=== PATIENT | female | born 1955 | race Caucasian/White ===

== ENCOUNTER 2017-09-26 10:00 | Outpatient (CLI) | payer OTHER ==
--- NOTE | 2017-09-26 10:26 | RAD ---
FIVE VIEWS OF THE LUMBAR SPINE: INDICATIONS: Back pain with referral to the right hip and right buttock region. FINDINGS: There is 24 degrees of dextroscoliosis centered at L2-L3. there is mild multilevel disk degenerative disease. There is mild multilevel facet osteoarthritic change, most pronounced at L3-L4 through L5- S1. Mild SI joint degenerative change is present. No acute fracture or subluxation is evident. No abnormal translational motion is demonstrated. IMPRESSION: 1. Mild multilevel spondylosis of the lumbar spine. 2. Mild dextroscoliosis. 3. No abnormal translational motion seen on the dynamic lateral projections of the lumbar spine. POS: KARYN
== END 2017-09-26 10:01 | disposition home or self-care (01) ==
LOC: SCSRAD 10:00
PROVIDERS: ATTEND Family Medicine
DX: M54.5 Low back pain (principal); M47.896 Other spondylosis, lumbar region; M41.86 Other forms of scoliosis, lumbar region
CPT/HCPCS: 72120

== ENCOUNTER 2018-04-24 09:01 | Outpatient (CLI) | payer OTHER | END 2018-04-24 09:02 | disposition home or self-care (01) | LOC: BICMAMMO 09:01 | PROVIDERS: ATTEND Family Medicine | DX: N64.4 Mastodynia (principal) | CPT/HCPCS: G0279 ==